=== PATIENT | female | born 1970 | race Caucasian/White ===

== ENCOUNTER 2018-07-29 15:58 | Emergency (ER) | payer BC ==
[~2018-07-29] VITALS: Ht 154.9 cm; Wt 48.1 kg
[2018-07-29 17:30] VITALS: BP 124/76
== END 2018-07-29 18:10 | disposition home or self-care (01) ==
LOC: ER 15:58
DX: T78.40XA Allergy, unspecified, initial encounter (principal); J45.909 Unspecified asthma, uncomplicated; X58.XXXA Exposure to other specified factors, initial encounter